=== PATIENT | female | born 1990 | race Caucasian/White ===

== ENCOUNTER 2018-09-22 06:26 | Inpatient (IN) | payer OTHER ==
--- NOTE | 2018-09-22 07:19 | P.HPOB ---
History of Present Illness H&P Date: 09/22/18 Chief Complaint: Contractions at 40-2/7 weeks' This is a 27 year old 1 para 0 with an estimated due date of 09/20/2018 who presents at 40-2/7 weeks' gestation with spontaneous onset of labor. She complains of several hours of worsening painful contractions. She denies vaginal bleeding or leakage of fluids. This has been an uncomplicated . Upon initial presentation to labor and delivery triage she was 4 cm dilated, 100 % effaced and the vertex is -3 station with regular contractions. Laboratory data: Blood type A+, antibody screen negative, rubella immune, VDRL nonreactive, hepatitis B surface antigen negative, HIV negative, gonorrhea and clinic cultures negative, diabetes screening within normal limits, group B strep negative. Patient received T And influenza vaccines. 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 History of Any Multi-Drug Resistant Organisms: None Reported Additional Past Surgical History / Comment(s): Jaw surgery 2011 Past Psychological History: No Psychological Hx Reported Smoking Status: Never smoker Past Alcohol Use History: None Reported Past Drug Use History: None Reported Medications and Allergies Home Medications Medication Instructions Recorded Confirmed Type Loratadine-Pseudoeph 10-240 mg 1 each PO DAILY PRN 09/22/18 09/22/18 History [Claritin-D 24 Hr] Pnv,Calcium 72/Iron/Folic Acid 1 each PO DAILY 09/22/18 09/22/18 History [ Plus Tablet] Allergies Allergy/AdvReac Type Severity Reaction Status Date / Time ibuprofen Allergy Rash/Hives Verified 09/22/18 06:40 Penicillins Allergy Rash/Hives Verified 09/22/18 06:40 Exam Intake and Output 09/21/18 09/22/18 09/22/18 22:59 06:59 14:59 Other: Weight 86.183 kg This is a pleasant, visibly gravid female in active labor. Targeted physical exam is performed. Cervix is 4 cm dilated 100% effaced vertex in the - 3 station. Membranes intact. heart tones are reassuring by external monitoring. With good variability and no repetitive decelerations. She is nery spontaneously every 2-4 minutes. Assessment and Plan (1) 40 weeks gestation of Current Visit: Yes Status: Acute Code(s): Z3A.40 - 40 WEEKS GESTATION OF SNOMED Code(s): 07323356 (2) Spontaneous onset of labor Current Visit: Yes Status: Acute Code(s): SCF1746 - SNOMED Code(s): 48465461 Plan: This is a 27-year-old 1 para 0 woman who presents at 40-2/7 weeks in spontaneous labor. His been an uncomplicated . She is group B strep negative and Rh+. status is currently reassuring by external monitoring. She will be admitted and may receive epidural anesthetic or IV analgesia upon request. Anticipate normal spontaneous vaginal delivery.
[2018-09-22] MEDS ORDERED: OXYTOCIN 10 UNIT/ML 1 ML VIAL IM PRN (07:36)
[2018-09-22] MEDS ORDERED: TERBUTALINE 1 MG/ML VIAL SQ PRN (07:36)
[2018-09-22] MEDS ORDERED: CARBOPROST TROMETHAMINE 250 MCG/ML 1 ML AMP IM PRN (07:36)
[2018-09-22] MEDS ORDERED: LIDOCAINE 0.5% (PF) 5 MG/ML (50 ML SDV) SQ PRN (07:36)
[2018-09-22] MEDS ORDERED: METHYLERGONOVINE 0.2 MG/ML 1 ML AMP IM PRN (07:36)
[2018-09-22] MEDS ORDERED: OXYTOCIN 20 UNITS/1000 ML NS 1,000 ML IV SCH ×2 (07:45→12:00)
[2018-09-22 07:55] LABS: Basophils % (A) 0 %; Eosinophils # (A) 0.1 k/uL (0-0.7); Eosinophils % (A) 1 %; HCT 36.6 % (34.0-46.0); Lymphocytes # (A) 2.1 k/uL (1.0-4.8); Lymphocytes % (A) 14 %; MCH 28.1 pg (25.0-35.0); MCHC 32.9 g/dL (31.0-37.0); MCV 85.4 fL (80.0-100.0); Mean Platelet Volume 9.7; Monocytes # (A) 0.6 k/uL (0-1.0); Monocytes % (A) 4 %; Neutrophils # (A) 11.7 k/uL (1.3-7.7); Neutrophils % (A) 80 %; Platelet Count 197 k/uL (150-450); RBC 4.28 m/uL (3.80-5.40); RDW 13.9 % (11.5-15.5); WBC 14.6 k/uL (3.8-10.6)
[2018-09-22 08:15] VITALS: BMI 31.6
[2018-09-22] MEDS: LACTATED RINGERS 1,000 ML IV SCH ×2 (08:16→09:09)
[2018-09-22] MEDS ORDERED: ZOLPIDEM 5 MG TAB PO PRN (11:54)
[2018-09-22] MEDS ORDERED: diphenhydrAMINE 25 MG CAP PO PRN (11:54)
[2018-09-22] MEDS ORDERED: BENZOCAINE/MENTHOL SPRAY 1 GM/SPRAY AEROSOL TOPICAL PRN (11:54)
[2018-09-22] MEDS ORDERED: HYDROCORTISONE 2.5% RECTAL CREAM 30 GM TUBE RECTAL PRN (11:54)
[2018-09-22] MEDS ORDERED: diphenhydrAMINE 50 MG/ML 1 ML VIAL IVP PRN ×2 (11:54)
[2018-09-22] MEDS ORDERED: IBUPROFEN 600 MG TAB PO PRN (11:54)
[2018-09-22] MEDS ORDERED: SIMETHICONE 80 MG CHEWABLE PO PRN (11:54)
[2018-09-22] MEDS ORDERED: diphenhydrAMINE 50 MG CAP PO PRN (11:54)
[2018-09-22] MEDS ORDERED: LANOLIN CREAM 5 GM TUBE TOPICAL PRN (11:54)
[2018-09-22] MEDS ORDERED: WITCH HAZEL 1 EACH MED..PAD TOPICAL PRN (11:54)
--- NOTE | 2018-09-22 11:54 | P.PROBDLV ---
Vaginal Delivery Note - . Vaginal Delivery Note: Findings: Female in the vertex left occiput anterior position with Apgars of 9 at 1 minute and 9 at 5 minutes weighing 8 lbs. 6 oz., 3800 g. Asymmetric second-degree perineal laceration with extension into the right vulva. Mild uterine atony managed with Pitocin and Methergine 1. EBL approximately 350 mL's. Delivery summary: This is a 27-year-old 1 para 0 woman who presented at 40-2/7 weeks' gestation in spontaneous active labor. She was 4 cm dilated at presentation at approximately 7 AM. She underwent artificial rupture of membranes and clear fluid was noted. She progressed rapidly and spontaneously to complete cervical dilation by 10:06 AM. She commenced pushing with excellent maternal effort. When she had pushed to she was repositioned , prepped and draped in the modified dorsal lithotomy position. With additional maternal effort the head delivered from the left occiput anterior position. The anterior followed by the posterior shoulders were delivered without difficulty. The nose and mouth were bulb suctioned and the infant was placed on the maternal abdomen. Once the cord stopped pulsating it was clamped and cut. Apgars were 9 at 1 minute and 9 at 5 minutes. The perineum was inspected and she had a shallow but asymmetric second-degree perineal laceration extending into the right vulva. This was repaired with 3-0 Vicryl suture in both running and interrupted fashion to reapproximate the perineum as well as on the vulvar laceration. An intact, three-vessel cord placenta was delivered prior to the repair after an approximately 5 minute third stage of labor. She did have some mild uterine atony which was managed with bimanual uterine massage, Pitocin intravenously and a single dose of Methergine IM. EBL was approximately 350 mL's. On completion of the repair rectal examination was performed and was normal. The cervix was inspected and no further lacerations were noted. All counts were correct and both mother and were doing well post delivery in the room.
[2018-09-22] MEDS: ACETAMINOPHEN TAB 325 MG TAB PO PRN ×2 (12:12→19:00)
[2018-09-22] MEDS: SENNOSIDES-DOCUSATE SODIUM 1 EACH TAB PO SCH (19:01)
[2018-09-22 23:53] VITALS: RESP 16
[2018-09-23 08:14] LABS: Basophils % (A) 0 %; Eosinophils % (A) 0 %; HCT 28.6 % (34.0-46.0); Lymphocytes # (A) 1.9 k/uL (1.0-4.8); Lymphocytes % (A) 12 %; MCH 27.6 pg (25.0-35.0); MCHC 32.1 g/dL (31.0-37.0); MCV 86.1 fL (80.0-100.0); Mean Platelet Volume 8.5; Monocytes # (A) 0.6 k/uL (0-1.0); Monocytes % (A) 4 %; Neutrophils # (A) 13.6 k/uL (1.3-7.7); Neutrophils % (A) 83 %; Platelet Count 172 k/uL (150-450); RBC 3.32 m/uL (3.80-5.40); RDW 13.9 % (11.5-15.5); WBC 16.4 k/uL (3.8-10.6)
[2018-09-23 08:26] LABS: HGB 9.2 gm/dL (11.4-16.0)
--- NOTE | 2018-09-23 09:58 | P.DS ---
Providers Date of admission: 09/22/18 07:11 Expected date of discharge: 09/23/18 Attending physician: Nunu Pastrana Primary care physician: Stated None - Discharge Diagnosis(es) (1) Normal spontaneous vaginal delivery Current Visit: Yes Status: Acute Hospital Course: The patient is a 27-year-old 1 para 0 admitted at 40-2/7 weeks by good dating parameters. She is admitted in early active labor with all signs reassuring. Her has been uncomplicated and group B strep status is negative. On labor and delivery, she underwent artificial rupture of membranes and progressed fairly quickly through the active phase of labor to complete. She then pushed to a normal spontaneous vaginal delivery of a viable 8 lbs. 6 oz. baby girl with Apgars of 9 at 1 minute and 9 at 5 minutes. She did have a perineal laceration extending to the right labia majora which was repaired. Her course was entirely unremarkable with vital signs remaining stable and her temperature was afebrile throughout. She was deemed stable for discharge on day #1 was discharged home to follow-up in the office in 6 weeks' time routinely. Discharge instructions included calling for any significantly increased bleeding or foul-smelling lochia, significantly increased fever abdominal pain, perineal complaints, breast complaints, or anything else that concerned her. She was additionally instructed to have nothing in the vagina for at least 6 weeks time to include intercourse. She understood all of her instructions and agrees to follow up as noted above. Discharge medications included continued vitamins as she has opted to breast-feed. She is additionally to use [id number] analgesic pain medications as needed. Maternal blood type is A+ and rubella status is immune. Procedures: #1. Artificial rupture of membranes #2. Normal spontaneous vaginal delivery # 3. Repair of perineal laceration with right labial extension Patient Condition at Discharge: Good Plan - Discharge Summary New Discharge Prescriptions: No Action Pnv,Calcium 72/Iron/Folic Acid [ Plus Tablet] 1 each PO DAILY Loratadine-Pseudoeph 10-240 mg [Claritin-D 24 Hr] 1 each PO DAILY PRN PRN Reason: Congestion Discharge Medication List Loratadine-Pseudoeph 10-240 mg [Claritin-D 24 Hr] 1 each PO DAILY PRN 09/22/18 [ History] Pnv,Calcium 72/Iron/Folic Acid [ Plus Tablet] 1 each PO DAILY 09/22/18 [ History] Follow up Appointment(s)/Referral(s): Nunu Pastrana MD [STAFF PHYSICIAN] - 6 Weeks Discharge Disposition: HOME SELF-CARE
[2018-09-23] MEDS: SENNOSIDES-DOCUSATE SODIUM 1 EACH TAB PO SCH (10:00)
[2018-09-23 10:09] VITALS: BP 133/74; PULSE 85; TEMP 98.1
== END 2018-09-23 13:50 | disposition home or self-care (01) | DRG 807 ==
LOC: FBPOP 06:26 → 4FBP 07:11
PROVIDERS: ADMIT Obstetrics & Gynecology; ATTEND Obstetrics & Gynecology
PROC: 10E0XZZ Delivery of Products of Conception, External Approach (ICD-10-PCS; principal; 2018-09-22)
PROC: 0KQM0ZZ Repair Perineum Muscle, Open Approach (ICD-10-PCS; 2018-09-22)
DX: O62.2 Other uterine inertia (principal); Z37.0 Single live birth; O70.1 Second degree perineal laceration during delivery; Z3A.40 40 weeks gestation of pregnancy; Z88.6 Allergy status to analgesic agent; Z88.0 Allergy status to penicillin
CPT/HCPCS: 59025; 85025; 86850; 86900; 86901; 99213

== ENCOUNTER → 2020-05-31 | Outpatient (CLI) | payer OTHER ==
[2020-05-31 15:03] LABS: HGB 11.8 gm/dL (11.4-16.0); MCH 28.4 pg (25.0-35.0); MCHC 32.9 g/dL (31.0-37.0); MCV 86.3 fL (80.0-100.0); Mean Platelet Volume 8.1; Platelet Count 231 k/uL (150-450); RBC 4.17 m/uL (3.80-5.40); RDW 13.1 % (11.5-15.5); WBC 13.2 k/uL (3.8-10.6)
[2020-05-31 21:05] LABS: Hepatitis B Surface Antigen Non-Reactive (Non-Reactive)
[2020-05-31 21:06] LABS: African American GFR (CKD) 137.6 (60.0-200.0); Non-African American GFR(CKD) 118.7 (60.0-200.0)
== END | disposition home or self-care (01) ==
LOC: LABWHC1 14:15
PROVIDERS: ATTEND Obstetrics & Gynecology
DX: Z34.81 Encounter for supervision of other normal pregnancy, first trimester (principal); Z3A.00 Weeks of gestation of pregnancy not specified
CPT/HCPCS: 36415; 82565; 82947; 85027; 86762; 86780; 86850; 86900; 86901; 87340

== ENCOUNTER → 2020-06-06 | Outpatient (CLI) | payer OTHER ==
--- NOTE | 2020-06-06 09:24 | US ---
EXAMINATION TYPE: Transabdominal DATE OF EXAM: 06/06/2020 8:07 AM COMPARISON: NONE CLINICAL HISTORY: Z36 Confirm dates. EXAM PERFORMED: Transabdominal (TA) EXAM MEASUREMENTS: GESTATIONAL AGE / DATING Physician Established: Not yet established Dates by Current Scan for: (12 weeks/0 days) EDC: 12/19/2020 MATERNAL ANATOMY Uterus: 14.7 x 6.8 x 10 cm Right Ovary: 2.4 x 1.7 x 1.5 cm Left Ovary: 2.1 x 2.0 x 1.0 cm Post CDS / Adnexa: wnl Presence of free fluid: no Presence of corpus luteal cyst: no Presence of subchorionic bleed: no GESTATION / SURVEY CRL: 5.3 cm (12 weeks/0 days) Heart Rate: 149 bpm Rhythm: Normal IUP: Viable IUP IMPRESSION: Viable IUP with an MCKENNA of 12/19/2020 by this exam
== END | disposition home or self-care (01) ==
LOC: RADUSWWP 07:34
PROVIDERS: ATTEND Obstetrics & Gynecology
DX: Z36.87 Encounter for antenatal screening for uncertain dates (principal); Z3A.12 12 weeks gestation of pregnancy
CPT/HCPCS: 76801

== ENCOUNTER → 2020-07-29 | Outpatient (CLI) | payer OTHER ==
--- NOTE | 2020-07-29 11:23 | US ---
EXAMINATION TYPE: US OB anatomy transabd DATE OF EXAM: 07/29/2020 COMPARISON: US 06/06/2020 HISTORY: O36.62X0 large for dates Anatomy scan TECHNIQUE: Transabdominal (TA) EXAM MEASUREMENTS: GESTATIONAL AGE / DATING Physician Established: (18 weeks/6 days) EDC: 12/24/2020 Dates by LMP: (18 weeks/6 days) EDC: 12/24/2020 Dates by First Scan: (19 weeks/4 days) EDC: 12/19/2020 Dates by Current Scan for: (19 weeks/2 days) EDC: 12/21/2020 SURVEY IUP: Single PLACENTA: Fundal PREVIA: No previa MEEK: 15.7 cm Normal CERVICAL LENGTH (transabdominal: norm > 3.0cm): 3.6 cm BIOMETRY PRESENTATION: Breech LIE: Longitudinal BPD: 4.4 cm 19 weeks / 3 days HC: 16.3 cm 19 weeks / 1 days AC: 14.1 cm 19 weeks / 4 days FL: 2.9 cm 19 weeks / 0 days ESTIMATED WEIGHT IN GRAMS: 279 grams ESTIMATED WEIGHT IN LBS/OZ: 0 lbs. 10 oz. WEIGHT PERCENTAGE BASED ON ESTABLISHED DATE: 66 % HC/AC: 1.15 Normal FL/AC: 20% Normal HEART RATE: 133 bpm RHYTHM: Normal ANATOMY SEEN (within normal limits): * Lateral Vent (< 1 cm) 0.8 cm * Cisterna Magna (< 1.1 cm) 0.4 cm * Nuchal Fold (< 0.6 cm) 0.5 cm * Cerebellum (varies with age) 1.7 cm Choroid Plexus (bilateral) Midline Falx Cavus Septi Pellucidi Four Chamber Heart Outflow tracts: LVOT/RVOT Stomach Situs Nose / Lips Diaphragm Kidneys (bilateral) Bladder Cord Insert Three Vessel Cord Longitudinal Spine Transverse Spine Arms (bilateral) Legs (bilateral) Viable IUP, measurements consistent with dates. Anatomy appears within normal limits. IMPRESSION: Single viable intrauterine as discussed.
== END | disposition home or self-care (01) ==
LOC: RADUSWWP 09:35
PROVIDERS: ATTEND Obstetrics & Gynecology
DX: O36.62X0 Maternal care for excessive fetal growth, second trimester, not applicable or unspecified (principal); Z3A.19 19 weeks gestation of pregnancy
CPT/HCPCS: 76811

== ENCOUNTER 2020-08-19 18:56 | Outpatient (CLI) | payer OTHER ==
[2020-08-19 19:36] VITALS: BP 120/75; PULSE 94; RESP 16; TEMP 98.8
--- NOTE | 2020-08-26 08:01 | P.MSEPDOC ---
Presenting Problems - Arrival Data Date of Arrival on Unit: 08/19/20 Time of Arrival on Unit: 18:56 Mode of Transport: Ambulatory - Complaint OB-Reason for Admission/Chief Complaint: Pain Comment: Patient has pain in her right leg just above the inside of her knee that started last night and woke her up out of her sleep, states it is very tender so she was worried it might be a blood clot since it still hurts. states it is red in color. With assessment spot is approximately the size of a pencil eraser, light red in color, no warmth noted with palpation. No swelling noted. Patient states the tenderness increases when she walks. Medical History - Information : 2 Para: 1 Term: 1 : 0 Abortions: Spontaneous or Elective: 0 Number of Living Children: 1 - Gestational Age Gestational Age by MCKENNA (wks/days): 22 Weeks and 0 Days Review of Systems - Review of Systems Constitutional: No problems Breast: No problems ENT: No problems Cardiovascular: No problems Respiratory: No problems Gastrointestinal: No problems Genitourinary: No problems Musculoskeletal: No problems Neurological: No problems Skin: No problems Vital Signs - Temperature Temperature: 98.8 F Temperature Source: Temporal Artery Scan - Pulse Pulse Oximetery Pulse Rate: 94 Pulse Assessment Method: Automatic Cuff - Respirations Respiratory Rate: 16 Oxygen Delivery Method: Room Air - Blood Pressure Sitting Blood Pressure: 120/75 Blood Pressure Mean: 90 Blood Pressure Source: Automatic Cuff Medical Screen Scoring (Pre) - Cervical Exam Dilation: Exam Deferred Effacement: Exam Deferred Membranes: Intact - Uterine Contractions Frequency: N/A Duration: N/A Intensity: N/A - Maternal Vital Signs Maternal Temperature: N/A Maternal Blood Pressure: N/A Signs of Preeclampsia: N/A Maternal Respirations: N/A - Maternal Trauma Maternal Trauma: N/A - Assessment - Baby A Baseline FHR: 130 Heart Rate - NICHD Category: Category I (Normal) = 0 Position: N/A Station: N/A - Total Score - Baby A Total Score - Baby A: 0 - Total Score - Baby B Total Score - Baby B: 0 - Total Score - Baby C Total Score - Baby C: 0 - Level of Risk - Baby A Level of Risk - Baby A: Low (0-5) - Level of Risk - Baby B Level of Risk - Baby B: Low (0-5) - Level of Risk - Baby C Level of Risk - Baby C: Low (0-5) Physician Notification (Pre) - Physician Notified Physician Notified Date: 08/19/20 Physician Notified Time: 19:22 New Order Received: Yes - Notification Comment Comment: Orders given to encourage rotation of heat and ice and if pain does not reside to call and schedule an appointment with her primary care or urgent care for follow up. Disposition - Disposition OB Disposition: Discharge to home, Written follow up instructions reviewed Discharge Date: 08/19/20 Discharge Time: 19:25 I agree with the RN Medical Screening Exam: Yes Risk & Benefit of care provided described in d/c instruction: Yes Diagnosis: RASH AND OTHER NONSPECIFIC SKIN ERUPTION
== END 2020-08-19 19:25 | disposition home or self-care (01) ==
LOC: FBPOP 18:56
PROVIDERS: ATTEND Obstetrics & Gynecology
DX: O99.891 Other specified diseases and conditions complicating pregnancy (principal); R21 Rash and other nonspecific skin eruption; Z3A.22 22 weeks gestation of pregnancy
CPT/HCPCS: 99213

== ENCOUNTER → 2020-09-03 | Outpatient (CLI) | payer OTHER ==
[2020-09-03 11:38] LABS: HCT 34.2 % (34.0-46.0); MCH 28.4 pg (25.0-35.0); MCHC 32.1 g/dL (31.0-37.0); MCV 88.5 fL (80.0-100.0); Mean Platelet Volume 8.7; Platelet Count 214 k/uL (150-450); RBC 3.86 m/uL (3.80-5.40); RDW 13.5 % (11.5-15.5); WBC 14.6 k/uL (3.8-10.6)
== END | disposition home or self-care (01) ==
LOC: LABWHC1 09:14
PROVIDERS: ATTEND Obstetrics & Gynecology
DX: Z34.82 Encounter for supervision of other normal pregnancy, second trimester (principal)
CPT/HCPCS: 36415; 82950; 85027

== ENCOUNTER → 2020-11-22 | Outpatient (CLI) | payer OTHER ==
--- NOTE | 2020-11-22 15:16 | US ---
EXAMINATION TYPE: US OB >= 14 wk fetus DATE OF EXAM: 11/22/2020 COMPARISON: CLINICAL HISTORY: O36.63X0 3RD Trimester large for dates Growth TECHNIQUE: Transabdominal (TA) GESTATIONAL AGE / DATING Physician Established: (35 weeks/3 days) EDC: 12/24/2020 Dates by Current Scan: (36 weeks/3 days) EDC: 12/17/2020 Beta HCG (if available): Not available at this time SURVEY IUP: Single PLACENTA: Fundal/Posterior PREVIA: No Previa MEEK: 22.0 cm Polyhydramnios CERVICAL LENGTH (transabdominal: norm > 3.0cm): 3.8 cm BIOMETRY PRESENTATION: Breech BPD: 9.4 cm 38 weeks / 2 days HC: 32.5 cm 36 weeks / 6 days AC: 32.5 cm 36 weeks / 3 days FL: 6.6 cm 34 weeks / 0 days ESTIMATED WEIGHT IN GRAMS: 2834 grams ESTIMATED WEIGHT IN LBS/OZ: 6 lbs. 4 oz. WEIGHT PERCENTAGE BASED ON ESTABLISHED DATES: 67% HC/AC: 1.0 Normal FL/AC: 20% Normal HEART RATE: 128 bpm RHYTHM: Normal Single live IUP measuring 36 weeks 3 days. IMPRESSION: 1. Intrauterine gestation estimated at 36 weeks 3 days gestation based on current ultrasound measurem ents. 2. The weight is 2034 g based on current measurements. 3. Cardiac activity 128. 4. Breech Presentation
== END ==
LOC: RADUSWWP 12:33
PROVIDERS: ATTEND Obstetrics & Gynecology
DX: O36.63X0 Maternal care for excessive fetal growth, third trimester, not applicable or unspecified (principal); Z3A.36 36 weeks gestation of pregnancy
CPT/HCPCS: 76805

== ENCOUNTER 2020-12-22 14:26 | Inpatient (IN) | payer OTHER ==
[2020-12-22] MEDS ORDERED: CITRIC ACID-SODIUM CITRATE 15 ML CUP PO ONE (15:09)
[2020-12-22] MEDS ORDERED: CLINDAMYCIN 600 MG in DEXTROSE 5% IN WATER 50 ML IVPB STA ×2 (15:25)
[2020-12-22 15:27] LABS: Basophils % (A) 0 %; Eosinophils # (A) 0.1 k/uL (0-0.7); Eosinophils % (A) 0 %; HGB 12.1 gm/dL (11.4-16.0); Lymphocytes % (A) 12 %; MCH 27.9 pg (25.0-35.0); MCHC 33.5 g/dL (31.0-37.0); MCV 83.4 fL (80.0-100.0); Monocytes # (A) 0.5 k/uL (0-1.0); Monocytes % (A) 3 %; Neutrophils # (A) 14.4 k/uL (1.3-7.7); Neutrophils % (A) 84 %; Platelet Count 159 k/uL (150-450); RBC 4.32 m/uL (3.80-5.40); RDW 14.7 % (11.5-15.5); WBC 17.2 k/uL (3.8-10.6)
[2020-12-22] MEDS: LACTATED RINGERS 1,000 ML IV ONE ×2 (15:28→15:29)
[2020-12-22] MEDS ORDERED: PHENYLEPHRINE-0.9% NACL SYG 1,000 MCG/10 ML SYRINGE ONE (15:40)
[2020-12-22] MEDS ORDERED: OXYTOCIN 10 UNIT/ML 1 ML VIAL ONE (15:40)
[2020-12-22] MEDS ORDERED: CLINDAMYCIN 150 MG/ML 4 ML VIAL ONE (15:40)
[2020-12-22] MEDS ORDERED: MORPHINE SULFATE (PF) 0.3 MG/0.3 ML SYR ONE (15:40)
[2020-12-22] MEDS ORDERED: KETOROLAC 15 MG/ML 1 ML VIAL ONE (15:40)
[2020-12-22] MEDS ORDERED: MORPHINE SULFATE 2 MG/ML SYRINGE IVP PRN (16:08)
[2020-12-22] MEDS ORDERED: NALOXONE 0.4 MG/ML 1 ML VIAL IV PRN ×2 (16:08→16:31)
[2020-12-22] MEDS ORDERED: diphenhydrAMINE 50 MG/ML 1 ML VIAL IVP PRN ×3 (16:08→16:31)
[2020-12-22] MEDS ORDERED: ZOLPIDEM 5 MG TAB PO PRN (16:31)
[2020-12-22] MEDS ORDERED: diphenhydrAMINE 50 MG CAP PO PRN (16:31)
[2020-12-22] MEDS ORDERED: METOCLOPRAMIDE 5 MG/ML 2 ML VIAL IVP PRN (16:31)
[2020-12-22] MEDS ORDERED: ONDANSETRON 4 MG/2 ML VIAL IVP PRN (16:31)
--- NOTE | 2020-12-22 16:35 | P.HPOB ---
History of Present Illness H&P Date: 12/22/20 Chief Complaint: Intrauterine at term: Breech presentation: Active labor Patient is a 22-year-old at 39 weeks gestation who arrives in active labor dilated to 7 cm. She relates that her contractions started about 2-1/2 hours prior to her arrival and that date only just recently gotten strong. Her course otherwise and breech presentation remained unremarkable and she is feeling well at this time. After a lengthy discussion and explanation saad arean section with risks and benefits we are moving forward with an urgent section as she is significantly dilated and at RES had a baby. Her memory are intact and [place] 1 tracing appears present on the monitor. Pertinent labs include A+ blood type, Rh and it was negative, rubella is immune, hepatitis B surface antigen/RPR were negative. We did verify breech presentation with bedside ultrasound. 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 History of Any Multi-Drug Resistant Organisms: None Reported Additional Past Surgical History / Comment(s): Jaw surgery 2010 Past Anesthesia/Blood Transfusion Reactions: No Reported Reaction Smoking Status: Never smoker - Past Family History Mother Family Medical History: Cancer, Hypertension Medications and Allergies Home Medications Medication Instructions Recorded Confirmed Type Loratadine-Pseudoeph 10-240 mg 1 each PO DAILY PRN 09/22/18 12/22/20 History [Claritin-D 24 Hr] Pnv,Calcium 72/Iron/Folic Acid 1 each PO DAILY 09/22/18 08/19/20 History [ Plus Tablet] Omeprazole 20 mg PO DAILY 08/19/20 12/22/20 History Allergies Allergy/AdvReac Type Severity Reaction Status Date / Time ibuprofen Allergy Rash/Hives Verified 12/22/20 14:41 Penicillins Allergy Rash/Hives Verified 12/22/20 14:41 Exam Osteopathic Statement: *. No significant issues noted on an osteopathic structural exam other than those noted in the History and Physical/Consult. Intake and Output 12/22/20 12/22/20 12/22/20 06:59 14:59 22:59 Other: Weight 89.811 kg - OBG Physical Exam Breast: both: normal (no masses) Abdomen: bowel sounds normal, no diffuse tenderness, no bruit present, no guarding noted, no hepatomegaly, no splenomegaly, no mass Vulva: both: normal Vagina: normal moisture, no discharge Cervix: no lesion, no discharge Uterus: normal size, normal contour Adnexa: both: normal Anus/Rectum: normal perianal skin, no rectal mass, no hemorrhoids, heme negative Results Result Diagrams: 12/22/20 15:15 Abnormal Lab Results - Last 24 Hours (Table) 12/22/20 Range/Units 15:15 WBC 17.2 H (3.8-10.6) k/uL Neutrophils # 14.4 H (1.3-7.7) k/uL
--- NOTE | 2020-12-22 16:38 | P.OP ---
Date of Procedure: 12/22/20 Preoperative Diagnosis: Intrauterine at term: Active labor: Breech presentation Postoperative Diagnosis: Same Procedure(s) Performed: Primary low transverse section Anesthesia: spinal Surgeon: Boo Starkey Detail Manager #1: Prosper Robbins Estimated Blood Loss (ml): 500 IV fluids (ml): 700 Urine output (ml): 100 Pathology: none sent Condition: stable Disposition: floor Operative Findings: Female scores of 9 and 9 at one and 5 minutes respectively and the weight was 8 lbs. 1 oz. Baby was in jeff breech presentation Description of Procedure: A she was taken to the operating suite where a spinal anesthetic was found be adequate. She was prepped and draped in the normal sterile fashion and placed in dorsal supine position with leftward tilt. Initially a Pfannenstiel skin incision was made and this incision was then carried through to underlying layer of the fascia was second knife. Fascia was then nicked in the midline and this opening was extended laterally with Damian scissors. Superior and inferior aspect of this incision were then grasped tented up and bluntly and sharply dissected off the rectus muscles. Rectus muscles were then divided midline and sharp dissection the peritoneum was performed. This opening was then extended superiorly and inferiorly with good visualization of both bowel bladder. Bladder blade was then placed in the bladder flap flap identified. It was entered with Metzenbaums pop scissors and carried across face uterus. Bladder was then bluntly dissected out of the operative field and knife was used to incise uterus. This opening was fully developed with a hemostat and then extended bluntly. At this point we were able to bring the buttock down into the incision and with fundal pressure and traction the buttock and followed by legs was delivered. Once the chest arms were swept across the face and then while rotating counterclockwise the head was easily delivered. Mouth nares were then bulb suctioned and nursery personnel was present and then the umbilical cord was clamped cut usual fashion. Placenta was then delivered intact and Pitocin was added to the IV. Uterus was then exteriorized cleared of clots and debris and closed in 2 layers with 0 Vicryl suture. Once excellent hemostasis was obtained blood and debris was suctioned from the posterior cul-de-sac and the uterus was reinserted the abdomen. 2-0 Vicryl was then used to reapproximate the peritoneum. Fascial layer was then closed with 0 Vicryl suture in a running fashion. One layer of 3-0 Vicryl was placed in deep subcuticular tissues to reapproximate skin and close the space. Skin was then closed with 3-0 Vicryl subcuticularly. Sponge, lap, needle counts were all correct 2. Patient was then taken to the recovery room in stable and satisfactory condition.
[2020-12-22] MEDS ORDERED: LACTATED RINGERS 1,000 ML IV SCH (16:45)
[2020-12-22] MEDS: SENNOSIDES-DOCUSATE SODIUM 1 EACH TAB PO SCH (20:53)
[2020-12-22] MEDS ORDERED: KETOROLAC 15 MG/ML 1 ML VIAL IVP SCH (22:33)
[2020-12-23] MEDS: diphenhydrAMINE 25 MG CAP PO PRN ×2 (00:11→06:28)
[2020-12-23 07:33] LABS: Basophils % (A) 0 %; Eosinophils % (A) 0 %; HCT 31.1 % (34.0-46.0); HGB 10.5 gm/dL (11.4-16.0); Lymphocytes # (A) 1.5 k/uL (1.0-4.8); Lymphocytes % (A) 9 %; MCH 28.5 pg (25.0-35.0); Mean Platelet Volume 10.4; Monocytes # (A) 0.6 k/uL (0-1.0); Monocytes % (A) 4 %; Neutrophils # (A) 14.2 k/uL (1.3-7.7); Neutrophils % (A) 86 %; Platelet Count 161 k/uL (150-450); RDW 14.7 % (11.5-15.5); WBC 16.4 k/uL (3.8-10.6)
[2020-12-23] MEDS: SENNOSIDES-DOCUSATE SODIUM 1 EACH TAB PO SCH ×2 (08:34→19:55)
[2020-12-23] MEDS ORDERED: HYDROcodone/APAP 7.5-325MG 1 EACH TAB PO PRN (09:56)
--- NOTE | 2020-12-23 10:02 | P.PN ---
Progress Note - Text Progress Note Date: 12/23/20 (896) Anesthesia Postop day 1 Subjective: Status Post section with Duramorph. Patient seen and examined. Doing well without complaint. VAS 0. Denies nausea vomiting and pruritus. Afebrile. Gross lower extremity strength intact. . Without apparent anesthetic complications. Objective: Vital signs reviewed Heart: Regular Rate Lungs: Good chest excursion Abdomen: Appears nondistended Assessment: Status post with Duramorph postop day 1 Plan: Continue current care with your medical management. Anticipated and the Duramorph around 4 tonight, you may see increased pain needs around this time.
[2020-12-23] MEDS: ACETAMINOPHEN TAB 325 MG TAB PO PRN (10:57)
--- NOTE | 2020-12-23 11:07 | P.PNOBGPC ---
Subjective - Subjective Principal diagnosis: Post op day 1 Interval history: Patient doing very well this morning. She is ambulating, voiding and tolerating her diet. She voices no complaints and will plan to remove the dressing later this afternoon. Patient reports: Reports appetite normal, Reports voiding normally, Reports pain well controlled, Reports ambulating normally [place]: doing well Objective - Vital Signs Latest vital signs: Vital Signs Temp Pulse Resp BP Pulse Ox 12/23/20 09:00 98.4 F 88 18 104/65 97 12/23/20 07:00 16 12/23/20 05:00 16 99 12/23/20 04:00 98.3 F 78 16 114/75 12/23/20 02:59 16 12/23/20 01:00 16 98 12/23/20 00:00 98.2 F 76 16 114/70 98 12/22/20 22:44 16 12/22/20 21:04 97 12/22/20 21:00 16 12/22/20 19:54 98.0 F 73 16 101/61 12/22/20 19:02 78 16 104/72 12/22/20 18:42 97.6 F 87 16 107/59 12/22/20 18:09 97.7 F 80 16 104/58 12/22/20 17:42 97.3 F L 95 16 116/58 12/22/20 17:29 100 16 107/58 12/22/20 17:27 96 16 107/58 12/22/20 17:24 97.7 F 91 16 129/73 12/22/20 17:08 96 16 113/56 99 12/22/20 16:56 97.7 F 91 16 129/73 12/22/20 16:42 97.6 F 93 16 95/54 12/22/20 16:08 96 16 107/58 99 Intake and Output 12/22/20 12/23/20 12/23/20 22:59 06:59 14:59 Intake Total 450 1140 Output Total 400 1400 Balance 50 -260 Intake: IV 250 900 Oral 200 240 Output: Urine 400 1400 Uretheral ([place]) 1100 Other: Weight 89.811 kg - Exam Lungs: bilateral: normal Chest: Normal S1, Normal S2 Extremities: Present: normal Abdomen: Present: normal appearance, soft. Absent: distention, tenderness Incision: Present: normal, dry, intact Uterus: Present: normal, firm - Labs Labs: Abnormal Lab Results - Last 24 Hours (Table) 12/22/20 12/23/20 Range/Units 15:15 06:41 WBC 17.2 H 16.4 H (3.8-10.6) k/uL RBC 3.70 L (3.80-5.40) m/uL Hgb 10.5 L (11.4-16.0) gm/dL Hct 31.1 L (34.0-46.0) % Neutrophils # 14.4 H 14.2 H (1.3-7.7) k/uL
[2020-12-23] MEDS ORDERED: HYDROcodone/APAP 5-325MG 1 EACH TAB PO PRN ×2 (11:08)
[2020-12-23] MEDS ORDERED: IBUPROFEN 600 MG TAB PO SCH (13:00)
[2020-12-23] MEDS: NAPROXEN 250 MG TAB PO SCH (15:36)
[2020-12-24] MEDS: diphenhydrAMINE 25 MG CAP PO PRN (02:01)
[2020-12-24] MEDS: NAPROXEN 250 MG TAB PO SCH (02:01)
[2020-12-24 06:05] VITALS: RESP 18
[2020-12-24] MEDS: ACETAMINOPHEN TAB 325 MG TAB PO PRN (08:27)
[2020-12-24] MEDS: SENNOSIDES-DOCUSATE SODIUM 1 EACH TAB PO SCH (08:28)
--- NOTE | 2020-12-24 09:37 | P.DS ---
Providers Date of admission: 12/22/20 15:12 Expected date of discharge: 12/24/20 Attending physician: Boo Starkey Primary care physician: Stated None Hospital Course: Patient is doing very well post op day 2. She is involuting, voiding and tolerating her diet. She voices no complaints and requests discharged home today. Vital signs are stable and afebrile. Heart regular, lungs clear, extremities without pain. Abdomen soft, uterus is firm, lochia is reported be light. Incision is clean dry and intact. Assessment postop day 2. Plan discharged home follow up with Dr. Brantley in 1 week. Prescription for Motrin and [place] [facility] and all questions are answered for her prior to discharge. Discharge instructions reviewed Patient Condition at Discharge: Good Plan - Discharge Summary New Discharge Prescriptions: New Ibuprofen [Motrin] 600 mg PO Q6HR PRN #30 tab PRN Reason: Pain HYDROcodone/APAP 5-325MG [[place] 5-325] 1 tab PO Q4HR PRN #30 tab PRN Reason: Pain No Action Pnv,Calcium 72/Iron/Folic Acid [ Plus Tablet] 1 each PO DAILY Loratadine-Pseudoeph 10-240 mg [Claritin-D 24 Hr] 1 each PO DAILY PRN PRN Reason: Congestion Omeprazole 20 mg PO DAILY Discharge Medication List Loratadine-Pseudoeph 10-240 mg [Claritin-D 24 Hr] 1 each PO DAILY PRN 09/22/18 [History] Pnv,Calcium 72/Iron/Folic Acid [ Plus Tablet] 1 each PO DAILY 09/22/18 [History] Omeprazole 20 mg PO DAILY 08/19/20 [History] HYDROcodone/APAP 5-325MG [[place] 5-325] 1 tab PO Q4HR PRN #30 tab 12/24/20 [Rx] Ibuprofen [Motrin] 600 mg PO Q6HR PRN #30 tab 12/24/20 [Rx] Follow up Appointment(s)/Referral(s): Suyapa Brantley DO [Doctor of Osteopathic Medicine] - 1 Week Activity/Diet/Wound Care/Special Instructions: No heavy lifting, limit stairs and driving, and pelvic rest. If any high temperatures, heavy bleeding, or severe pain call my office Discharge Disposition: HOME SELF-CARE
[2020-12-24 09:48] VITALS: BP 108/71; PULSE 79; TEMP 98.2
== END 2020-12-24 14:05 | disposition home or self-care (01) | DRG 788 ==
LOC: FBPOP 14:26 → 4FBP 15:12
PROVIDERS: ADMIT Obstetrics & Gynecology; ATTEND Obstetrics & Gynecology
PROC: 10D00Z1 Extraction of Products of Conception, Low, Open Approach (ICD-10-PCS; principal; 2020-12-22 15:42)
DX: O32.1XX0 Maternal care for breech presentation, not applicable or unspecified (principal); Z37.0 Single live birth; Z3A.39 39 weeks gestation of pregnancy; Z79.899 Other long term (current) drug therapy; Z88.6 Allergy status to analgesic agent; Z88.0 Allergy status to penicillin; Z87.2 Personal history of diseases of the skin and subcutaneous tissue; Z82.49 Family history of ischemic heart disease and other diseases of the circulatory system; Z80.9 Family history of malignant neoplasm, unspecified
CPT/HCPCS: 59025; 85025; 86850; 86900; 86901; 99213

== ENCOUNTER 2024-03-31 02:35 | Outpatient (CLI) | payer BC ==
[2024-03-31 04:11] VITALS: BP 129/68; PULSE 74; RESP 16; TEMP 97.7
--- NOTE | 2024-04-14 09:37 | P.MSEPDOC ---
Presenting Problems - Arrival Data Date of Arrival on Unit: 03/31/24 Time of Arrival on Unit: 02:35 Mode of Transport: Wheelchair - Complaint OB-Reason for Admission/Chief Complaint: Possible Onset of Labor Comment: patient presents to triage with contractions that started around 2230. Patient is rating contractions 3/10 and states contractions are about every 3 min apart. Medical History - Information : 3 Para: 2 Term: 2 : 0 Abortions: Spontaneous or Elective: 0 Number of Living Children: 2 - Gestational Age Gestational Age by MCKENNA (wks/days): 39 Weeks and 0 Days - History Complications: Prior Review of Systems - Review of Systems Constitutional: No problems Breast: No problems ENT: No problems Cardiovascular: No problems Respiratory: No problems Gastrointestinal: No problems Genitourinary: No problems Musculoskeletal: No problems Neurological: No problems Skin: No problems Vital Signs - Temperature Temperature: 97.7 F Temperature Source: Temporal Artery Scan - Pulse Pulse Oximetery Pulse Rate: 74 Pulse Assessment Method: Pulse Oximetry - Respirations Respiratory Rate: 16 Oxygen Delivery Method: Room Air O2 Sat by Pulse Oximetry: 97 - Blood Pressure Right Arm Blood Pressure: 129/68 Blood Pressure Mean: 88 Blood Pressure Source: Automatic Cuff Medical Screen Scoring - Cervical Exam Dilation (cm): 3 Effacement (%): 70 Station: -2 Membranes: Intact - Uterine Contractions Frequency From (mins): 2 Frequency To (mins): 6 Duration From (seconds): 50 Duration To (seconds): 90 Intensity: Moderate Resting: Soft to palpation - Assessment - Baby A Baseline FHR: 120 Heart Rate - NICHD Category: Category I (Normal) NST: Reactive Physician Notification - Physician Notified Physician Notified Date: 03/31/24 Physician Notified Time: 03:52 Physician: Rhoda Montana New Order Received: Yes - Notification Comment Comment: Dr. Montana called at home, updated on pt complaints, GA, G/P, VS, CAT 1 FHT, contraction pattern, pain rated 4/10, cervical exam. Orders to discharge home with instructions Maternal Triage Index - Maternal Triage Index Presenting for scheduled procedure w/no complaint: No - Stat/Priority 1 Stat Priority 1: No - Urgent/Priority 2 Urgent Priority 2: No - Prompt/Priority 3 Prompt Priority 3: No - Non-Urgent/Priority 4 Non-Urgent Priority 4: Yes Criteria Met for Priority 4: patient presents to triage with contractions that started around 2230. Patient is rating contractions 3/10 and states contractions are about every 3 min apart. Disposition - Disposition OB Disposition: Discharge to home Discharge Date: 03/31/24 Discharge Time: 04:00 I agree with the RN Medical Screening Exam: Yes Case reviewed; plan agreed upon as documented in EMR&OBIX.: Yes Diagnosis: FALSE LABOR AT OR AFTER 37 COMPLETED WEEKS OF GESTATION
== END 2024-03-31 04:00 | disposition home or self-care (01) ==
LOC: FBPOP 02:35
PROVIDERS: ATTEND Obstetrics & Gynecology Obstetrics
DX: O47.1 False labor at or after 37 completed weeks of gestation (principal); Z3A.39 39 weeks gestation of pregnancy; Z88.0 Allergy status to penicillin; Z88.6 Allergy status to analgesic agent
CPT/HCPCS: 59025; 99213

== ENCOUNTER 2024-03-31 19:50 | Inpatient (IN) | payer BC ==
[2024-03-31] MEDS ORDERED: METHYLERGONOVINE 0.2 MG/ML 1 ML AMP IM PRN (21:11)
[2024-03-31] MEDS ORDERED: CARBOPROST TROMETHAMINE 250 MCG/ML 1 ML AMP IM PRN (21:11)
[2024-03-31] MEDS ORDERED: miSOPROStoL 200 MCG TAB RECTAL PRN (21:11)
[2024-03-31] MEDS ORDERED: OXYTOCIN 10 UNIT/ML 1 ML VIAL IM PRN (21:11)
[2024-03-31] MEDS ORDERED: TERBUTALINE 1 MG/ML VIAL SQ PRN (21:11)
[2024-03-31] MEDS ORDERED: miSOPROStoL 200 MCG TAB PO PRN (21:11)
[2024-03-31] MEDS ORDERED: TRANEXAMIC 1,000 MG/100ML-NACL 1,000 MG in EMPTY BAG 1 BAG IV PRN (21:11)
--- NOTE | 2024-03-31 21:57 | P.HPOB ---
History of Present Illness H&P Date: 03/31/24 Chief Complaint: regular contractions Ms. Eckert is a 33 year old at 39 weeks with EDC of 04/07/2024 by LMP consistent with 8 week US who presents to labor and delivery with regular, painful contractions. She was seen earlier this morning around 200 in triage for similar complaints and found to be dilated to 3cm at that time. At this time, the patient is now 5/60/-2. She is graphing contractions every 7-10 minutes. The has been uncomplicated. She does have a history of a prior for breech presentation and desire TOLAC. She has been thoroughly counseled by Dr. Montana in the office regarding the associated risks. Obstetric history: 1 (8#6oz, no complications) > primary 2/2 breech presentation work-up: blood type A positive, antibody screen negative, rubella immune, VDRL non-reactive, HIV negative, HBsAg negative, HCV Ab negative, gonorrhea negative, chlamydia negative, 1 hour GTT wnl, GBS negative. 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 History of Any Multi-Drug Resistant Organisms: None Reported Additional Past Surgical History / Comment(s): Jaw surgery 2010 Past Anesthesia/Blood Transfusion Reactions: No Reported Reaction Smoking Status: Never smoker - Past Family History Mother Family Medical History: Cancer, Hypertension Medications and Allergies Home Medications Medication Instructions Recorded Confirmed Type Vit No.180/Iron/Folic 1 each PO DAILY 09/22/18 03/31/24 History [ Plus Tablet] RX: Omeprazole 20 mg PO DAILY 08/19/20 03/31/24 History Loratadine [Claritin] 10 mg PO DAILY 03/31/24 03/31/24 History Allergies Allergy/AdvReac Type Severity Reaction Status Date / Time ibuprofen Allergy Rash/Hives Verified 03/31/24 19:59 Penicillins Allergy Rash/Hives Verified 03/31/24 19:59 Exam Vital Signs Temp Pulse Resp BP Pulse Ox 03/31/24 19:59 97.7 F 81 16 151/76 98 Intake and Output 03/31/24 03/31/24 03/31/24 06:59 14:59 22:59 Other: Weight 91.626 kg Focused physical exam is performed. This is a healthy-appearing in no apparent distress. Breathing is non-labored. Abdomen is gravid. Cervix is 5/60/- 2 per OB RN. Extremities are non-tender and non-edematous. heart tones are Category I and tocometer is graphing contractions ever 7-10 minutes. Assessment and Plan Assessment: 33 year old at 39 weeks presenting in spontaneous labor Plan: Admit, clear liquid diet, expectant management. patient does not plan to get epidural. continuous efm and tocometer. anticipate vaginal delivery.
[2024-03-31 23:34] LABS: Basophils % (A) 0 %; Eosinophils # (A) 0.1 k/uL (0-0.7); Eosinophils % (A) 1 %; HGB 11.7 gm/dL (11.4-16.0); Lymphocytes # (A) 2.2 k/uL (1.0-4.8); Lymphocytes % (A) 17 %; MCHC 33.5 g/dL (31.0-37.0); MCV 83.7 fL (80.0-100.0); Mean Platelet Volume 11.6; Monocytes # (A) 0.6 k/uL (0-1.0); Monocytes % (A) 5 %; Neutrophils # (A) 10.1 k/uL (1.3-7.7); Neutrophils % (A) 76 %; Platelet Count 165 k/uL (150-450); RBC 4.17 m/uL (3.80-5.40); RDW 15.5 % (11.5-15.5); WBC 13.2 k/uL (3.8-10.6)
[2024-04-01 00:07] LABS: RBC Morphology Normal
[2024-04-01] MEDS ORDERED: diphenhydrAMINE 25 MG CAP PO PRN (01:44)
[2024-04-01] MEDS ORDERED: ZOLPIDEM 5 MG TAB PO PRN (01:44)
[2024-04-01] MEDS ORDERED: IBUPROFEN 600 MG TAB PO PRN (01:44)
[2024-04-01] MEDS ORDERED: SIMETHICONE 80 MG CHEWABLE PO PRN (01:44)
[2024-04-01] MEDS ORDERED: HYDROCORTISONE 2.5% RECTAL CREAM 30 GM TUBE RECTAL PRN (01:44)
[2024-04-01] MEDS ORDERED: diphenhydrAMINE 50 MG CAP PO PRN (01:44)
[2024-04-01] MEDS ORDERED: LANOLIN CREAM 1 GM TUBE TOPICAL PRN (01:44)
[2024-04-01] MEDS ORDERED: diphenhydrAMINE 50 MG/ML 1 ML VIAL IVP PRN ×2 (01:44)
[2024-04-01] MEDS ORDERED: ACETAMINOPHEN TAB 325 MG TAB PO PRN (01:44)
--- NOTE | 2024-04-01 01:44 | P.PROBDLV ---
Vaginal Delivery Note - . Vaginal Delivery Note: DATE OF SERVICE: 04/01/2024 PROCEDURE: Vaginal After ATTENDING: Dr. Leidy Sanchez MD ESTIMATED BLOOD LOSS: 300 mL FINDINGS: VMI, Apgars 7/9. Weight 8 pounds and 6 ounces (3800 grams) PROCEDURE: Ms. Eckert is a 33 year old at 39 weeks andd 1 day presenting to labor and delivery in spontaneous labor. She was admitted and expectantly managed. SROM occured at 0020. The patient was completely dilated at 0103. She pushed effectively with Category I heart tones. A viable male infant was delivered at 0120. The infant was placed on the maternal abdomen and bulb suctioned. The infant was noted to be spontaneously crying. Cord was clamped and cut after a 60-second delay. The infant was handed off to the pediatric team. Placenta was delivered whole with gentle cord traction at 0122. Oxytocin was started to facilitate uterine tone. Uterine fundus was found to be firm and below the umbilicus upon fundal massage. Thorough examination of the cervix, vagina, periurethral area, and perineum revealed a second degree perineal laceration. The perineum was infiltrated with lidocaine and repaired with 2-0 Vicryl in the usual fashion. The patient is stable and allowed to begin the bonding process.
[2024-04-01] MEDS: LIDOCAINE 0.5% (PF) 5 MG/ML (50 ML SDV) SQ PRN (02:05)
[2024-04-01] MEDS: LACTATED RINGERS 1,000 ML IV SCH (02:05)
[2024-04-01] MEDS: BENZOCAINE/MENTHOL SPRAY 1 GM/SPRAY AEROSOL TOPICAL PRN (02:07)
[2024-04-01] MEDS: SENNOSIDES-DOCUSATE SODIUM 1 EACH TAB PO SCH (09:08)
[2024-04-01 20:35] VITALS: RESP 16; TEMP 97.9
[2024-04-02 02:58] VITALS: BP 97/58; PULSE 80
[2024-04-02 06:05] LABS: Basophils % (A) 0 %; Eosinophils # (A) 0.1 k/uL (0-0.7); Eosinophils % (A) 1 %; HCT 31.2 % (34.0-46.0); HGB 10.1 gm/dL (11.4-16.0); Lymphocytes # (A) 2.8 k/uL (1.0-4.8); Lymphocytes % (A) 23 %; MCH 28.1 pg (25.0-35.0); MCHC 32.4 g/dL (31.0-37.0); MCV 86.5 fL (80.0-100.0); Mean Platelet Volume 10.4; Monocytes # (A) 0.4 k/uL (0-1.0); Monocytes % (A) 4 %; Neutrophils # (A) 8.6 k/uL (1.3-7.7); Neutrophils % (A) 71 %; Platelet Count 153 k/uL (150-450); RDW 15.6 % (11.5-15.5); WBC 12.2 k/uL (3.8-10.6)
--- NOTE | 2024-04-02 10:11 | P.DS ---
Providers Date of admission: 03/31/24 21:07 Expected date of discharge: 04/02/24 Attending physician: Rhoda Montana Primary care physician: Stated None Hospital Course: Ms. Eckert is a 33 year old now PPD#1 s/p normal spontaneous vaginal delivery. The patient is doing well this morning and had no acute events overnight. She has no complaints this morning. She reports minimal lochia, passing flatus, voiding without difficulty, ambulating, and eating/drinking without nausea or vomiting. Infant doing well at bedside, s/p circumcision. She denies chest pain, shortness of breathing, fevers, or chills overnight. She denies pain or swelling in the legs. restrictions are reviewed with the patient including pelvic rest for 6 weeks. The patient is encouraged to call the office if she experiences any heavy bleeding, foul-smelling discharge, breast complaints, or any if she has any other concerns. She will follow up in the office with Dr. Montana in 4-6 weeks for exam. She plans to use Motrin and Tylenol OTC as needed for pain. All questions are answered. Assessment: 33 year old now PPD#1 s/p Patient Condition at Discharge: Good Plan - Discharge Summary New Discharge Prescriptions: No Action Vit No.180/Iron/Folic [ Plus Tablet] 1 each PO DAILY Omeprazole 20 mg PO DAILY Loratadine [Claritin] 10 mg PO DAILY Discharge Medication List Vit No.180/Iron/Folic [ Plus Tablet] 1 each PO DAILY 09/22/18 [History] Omeprazole 20 mg PO DAILY 08/19/20 [History] Loratadine [Claritin] 10 mg PO DAILY 03/31/24 [History] Follow up Appointment(s)/Referral(s): Rhoda Montana DO [Doctor of Osteopathic Medicine] - 4 Weeks Activity/Diet/Wound Care/Special Instructions: Instructions 1. Do not begin any exercise program for 3 weeks. 2. Do not resume sexual relations for 6 weeks or longer if uncomfortable. 3. You may take tub baths or showers at any time. 4. You may use tampons if desired after 6 weeks. 5. Keep any areas repaired with stitches clean and dry. 6. If you are not nursing, wear a good fitting, supportive bra during the day and limit fluid intake for at least 1 week to prevent breast engorgement. 7. Call the office, , within the next week to make appointment for your 6 week checkup if it has not already been made. 8. Report any of the following occurrences to the doctor promptly: a. Heavy, excessive bleeding b. Chills, fever c. Burning or frequency of urination d. Pain or redness and breasts if nursing e. Increasing pain or swelling of vulva (stitches). In addition to the above instructions, the following additional should be followed: 1. No heavy lifting or straining (exercising) until after 6 week checkup. 2. Keep abdominal incision clean and dry: You may wear a dressing if more comfo rtable. 3. Make office appointment for 2 weeks after delivery date. Discharge Disposition: HOME SELF-CARE
== END 2024-04-02 11:44 | disposition home or self-care (01) | DRG 807 ==
LOC: FBPOP 19:50 → 4FBP 21:07
PROVIDERS: ADMIT Obstetrics & Gynecology; ATTEND Obstetrics & Gynecology Obstetrics
PROC: 0KQM0ZZ Repair Perineum Muscle, Open Approach (ICD-10-PCS; principal; 2024-04-01)
PROC: 10E0XZZ Delivery of Products of Conception, External Approach (ICD-10-PCS; principal; 2024-04-01)
PROC: 4A1HXCZ Monitoring of Products of Conception, Cardiac Rate, External Approach (ICD-10-PCS; principal; 2024-04-01)
DX: O34.219 Maternal care for unspecified type scar from previous cesarean delivery (principal); Z37.0 Single live birth; O70.1 Second degree perineal laceration during delivery; Z3A.39 39 weeks gestation of pregnancy; Z28.310 Unvaccinated for COVID-19; Z88.6 Allergy status to analgesic agent; Z88.0 Allergy status to penicillin
CPT/HCPCS: 59025; 85025; 86850; 86900; 86901; 99213